=== PATIENT | male | born 1965 | race Caucasian/White ===

== ENCOUNTER 2017-04-11 01:18 | Inpatient (IN) | payer MEDICARE, OTHER ==
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
--- NOTE | ~2017-04-11 | DS ---
Discharge Summary [facility] [address] [place]. [address] NAME: IRVIN BAZZI JR : 61 STATUS : DIS IN PAT#: [id number] AGE: 51 ADM/REG DATE : 04/12/17 MR#: [id number] REPORT SERV DATE: 04/17/17 DICTATED BY: DATE: REPORT STATUS : Draft TRANSCRIBED BY: MODL DATE: 04/16/17 ADMISSION DATE: 04/12/2017 DISCHARGE DATE: 04/16/2017 [facility] ATTENDING PHYSICIAN: Dr. Tejas Hatch. CONSULTANTS: Included Tevin Anderson of Urology, Dr. Lopez Kinney of Infectious Disease, and Maximo Maldonado of Interventional Radiology. DISCHARGE DIAGNOSES: 1. Catheter associated urinary tract infection, catheter associated epididymitis. 2. Chronic indwelling Gill catheter due to history of spinal cord injury. 3. Fluoroquinolone resistant E. coli and Pseudomonas catheter associated urinary tract infection - to complete an additional two weeks of IV cefepime. 4. Status post suprapubic catheter placement in Interventional Radiology on 04/15/2017. 5. Spastic quadriplegia due to history of spinal cord injury. 6. Chronic pain syndrome and chronic spasticity. 7. Acute kidney injury present at admission - resolved. 8. Insulin-dependent diabetes mellitus type 2 - controlled with hemoglobin A1c of 6.4. 9. History of anemia of chronic disease. Normal iron studies this admission, normal B12. 10.History of paroxysmal atrial fibrillation. 11.Anxiety and depression. 12.History of DVT - not requiring chronic anticoagulation. 13.History of gout. 14.History of neuropathy. 15.History of decubitus ulcers - none presently. For air mattress at discharge as a preventative measure. 16.Chronic bilateral lower extremity lymphedema. 17.Hypomagnesemia. IMAGIN. Testicular ultrasound on 04/11/2017 for left scrotal pain shows left epididymitis with septated hydrocele or pyocele. 2. CT abdomen and pelvis 04/13/2017 for urinary tract infection and neurogenic bladder shows no acute abnormality. Moderate amount of fecal material retained throughout the colon. Small right effusion with minimal atelectasis at the right lung base. Cholelithiasis. PERTINENT LABS: White blood cell count at admission was 10.7, 4.7 at discharge. Hemoglobin values ranging from 11.7 to 13.2, platelet counts ranging from 110-131. Sedimentation rate 53. Sodium values normal. Potassium normal. Creatinine initially 1.85, 1.26 at discharge. Liver enzymes normal. Iron 66. Iron binding capacity 200%. Iron saturation 33, ferritin 492. B12 445. TSH 0.446. Free T4 of 1.18. Hemoglobin A1c 6.4. Lactate 1.9. Urinalysis cloudy with glucose, large leukocyte esterase, nitrite positive, greater than 182 white Discharge Summary [address] [place]. [address] NAME: IRVIN BAZZI JR : 61 STATUS : DIS IN PAT#: [id number] AGE: 51 ADM/REG DATE : 04/12/17 MR#: [id number] REPORT SERV DATE: 04/17/17 DICTATED BY: DATE: REPORT STATUS : Draft TRANSCRIBED BY: MODL DATE: 04/16/17 blood cells with few clumps, few bacteria. No blood cultures were obtained. Urine cultures demonstrating E. coli and Pseudomonas, both with fluoroquinolone resistance. BRIEF HISTORY: For full details, please see the previously dictated history of present illness by Dr. Magen Paz. This is a 51-year-old white male with longstanding quadriplegia from a cervical spine injury in the with a chronic indwelling Gill catheter. He presented to the emergency department on the with 24 hours of significant swelling, redness, tenderness of the left testicle, nausea, abdominal discomfort, and was found to have an abnormal urinalysis. Imaging in the emergency department also revealed left epididymitis and labs revealed acute kidney injury. The patient was admitted to the Hospitalist Service for management of the above. HOSPITAL COURSE: The patient was initially cared for by Dr. Hatch from admission through 04/14/2017. Consultations were obtained from Urology and Infectious Disease. The patient was initially managed with cefepime and vancomycin given prior culture data of MRSA and Pseudomonas. He improved with this and recommendation was to continue cefepime for an additional two weeks post discharge. PICC line was placed on 04/14/2017 to facilitate home IV antibiotics. Urology also recommended suprapubic tube placement prior to discharge, and this was performed in Interventional Radiology by Dr. Maximo Maldonado on 04/15/2017 without complication. The patient's chronic medical conditions were managed with the use of home medications this admission, and patient did not require the addition of any medications to his regimen with the exception of magnesium and aspirin for stroke prophylaxis with history of paroxysmal atrial fibrillation. DISCHARGE DISPOSITION: The patient is being discharged to home in the care of his supportive who is a nurse, with a PICC line and a suprapubic tube. He will complete an additional two weeks of IV cefepime, and his PICC line will be discontinued on 05/01/2017. The patient will need to follow up with interventional radiologist, Dr. Maximo Maldonado in one month for the first suprapubic tube exchange and thereafter with his urologist, Dr. Tevin Anderson. Home health is being arranged for PICC care, suprapubic tube care, and IV antibiotic teaching. Air mattress was also ordered for home use for the patient given history of decubitus ulcers and quadriplegia. DISCHARGE MEDICATIONS: Include: 1. Aspirin 81 mg p.o. daily. 2. Baclofen 10 mg p.o. four times a day. 3. Wellbutrin 150 mg p.o. twice a day. 4. Zantac 150 mg p.o. twice a day. 5. Neurontin 600 mg p.o. twice a day. 6. Lantus 35 units subcu twice a day. 7. NovoLog sliding scale subcu q.a.c. and at bedtime. 8. MS Contin 60 mg p.o. twice a day. Discharge Summary [address] [address] NAME: ROSE MARYIRVIN TYLER WARNER : 61 STATUS : DIS IN PAT#: [id number] AGE: 51 ADM/REG DATE : 04/12/17 MR#: [id number] REPORT SERV DATE: 04/17/17 DICTATED BY: DATE: REPORT STATUS : Draft TRANSCRIBED BY: MODL DATE: 04/16/17 9. Multivitamin one tablet p.o. daily. 10.Zocor 20 mg p.o. daily. 11.Zanaflex 4 mg p.o. three times a day. 12.Trazodone 100 mg p.o. at bedtime. 13.Magnesium oxide 800 mg p.o. twice a day. 14.Xanax 1 mg p.o. every 8 hours as needed for anxiety. 15.Roxicodone 20 mg p.o. every six hours as needed for pain. 16.Glucotrol 10 mg p.o. twice a day. 17.Iron sulfate 325 mg p.o. twice a day. 18.Lasix 20 mg p.o. twice a day. 19.Colcrys 0.6 mg p.o. twice a day as needed for gout flare ups. 20.Allopurinol 300 mg p.o. daily p.r.n. gout flare up. 21.Lactulose 15-30 mL p.o. daily as needed for constipation. 22.Afrin 2-3 sprays per nostril every 12 hours as needed for congestion. 23.Cefepime 1 g IV q.8 hours administered via a portable pump -through 04/20/2017. 40 minutes was spent in completion of the discharge. DICTATED BY: Suhas Bower/TETE Pedro Mehta M.D. / [id number] CC: Suhas Bowre M.D. Donald Zeigler, M.D.
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
[~2017-04-11 01:18] MED LIST: ABILIFY15 PO; ALIGN4 MG PO; AMB5 PO; B COMPLEX-C PO; BACDS PO; CEFT5 PO; COLCRYS0.6 MG PO; CONSTULOSE PO; DSS PO; DURA75 TOP; GLUCOTRO10 PO; L20 PO; LEVEMIR SC; MAGOX4 PO; MAX2 IM; MSIMMREL PO; NEUR600 PO; OXYCOD PO; PRIN10 PO; TRAZ100 PO; WELLXL300 PO; X5 PO; XARELTO15 MG PO; XARELTO20 MG PO; Z300 PO; ZANAFLEX 4 MG TA4 MG PO; ZANTAC150 MG PO; ZOCOR20 PO
[2017-04-11 01:48] LABS: ASCORBIC ACID (UR NOT ORDER) NEG (NEG); BILIRUBIN, URINE NEGATIVE (NEG); ER URINALYSIS TAT 0 Hrs 00 Mins; KETONE, URINE NEGATIVE (NEG); LEUKOCYTE ESTERASE(NOT OR LARGE (NEG); NITRITE (URINE) POS (NEG)
[2017-04-11 01:49] LABS: WBC (NOT ORDERED) (RFLEX) > 182 (0-5)
[2017-04-11 02:04] LABS: BASOPHILS 0.2 %; BASOPHILS ABSOLUTE 0.02 10/3/uL (0.0-0.16); EOSINOPHILS 1.3 %; EOSINOPHILS ABSOLUTE 0.14 10/3/uL (0.0-0.53); HEMATOCRIT 38.9 % (40.0-51.0); HEMOGLOBIN 13.2 g/dL (13.6-17.8); IMMATURE GRANULOCYTES 0.2 %; IMMATURE GRANULOCYTES ABSOLUTE 0.02 10/3/uL (0.0-0.11); LYMPHOCYTES 12.2 %; LYMPHOCYTES ABSOLUTE 1.31 10/3/uL (0.67-4.30); MEAN CORPUS HGB CONC 33.9 g/dL (32.0-36.0); MEAN CORPUSCULAR HEMOGLOB 28.8 pg (26.0-34.0); MEAN CORPUSCULAR VOLUME 84.7 fL (80-100); MEAN PLATELET VOLUME 10.6 fL (9.2-13.0); MONOCYTES 8.7 %; MONOCYTES ABSOLUTE 0.93 10/3/uL (0.21-1.20); NEUTROPHILS 77.4 %; NEUTROPHILS ABSOLUTE 8.32 10/3/uL (2.02-8.40); PLATELET COUNT 131 10/3/uL (150-400); RBC DISTRIBUTION WIDTH 15.5 % (12.0-16.0); RED CELL COUNT 4.59 10/6/uL (4.7-6.1); WHITE BLOOD CELLS 10.7 10/3/uL (4.5-10.5)
[2017-04-11 02:05] LABS: MANUAL DIFF NO %
[2017-04-11 02:23] LABS: A/G RATIO 0.7 (0.7-1.9); ALKALINE PHOSPHATASE 95 U/L (45-117); BUN (BLOOD UREA NITROGEN) 20 MG/DL (6-23); CALCIUM, SERUM 8.4 MG/DL (8.5-10.4); CHLORIDE, SERUM 103 MMOL/L (96-112); CO2 (CARBON DIOXIDE) 25 MMOL/L (24-34); CREATININE 1.85 MG/DL (0.70-1.30); GFR AFRICAN AMERICAN 47 ML/MIN (>=60); GFR NON AFRICAN AMERICAN 41 ML/MIN (>=60); GLOBULIN 4.3 G/DL (2.5-4.1); POTASSIUM, SERUM 4.4 MMOL/L (3.5-5.3); SGOT(AST) 9 U/L (5-40); SGPT(ALT) 17 U/L (5-65); SODIUM, SERUM 137 MMOL/L (135-148); TOTAL BILIRUBIN 0.5 MG/DL (0-1.2); TOTAL PROTEIN 7.3 G/DL (6.0-8.5)
[2017-04-11 02:24] LABS: GLUCOSE, SERUM 272 MG/DL (60-99); LACTATE 1.9 MMOL/L (0.3-2.4)
[2017-04-11 02:43] LABS: PROCALCITONIN 0.26 ng/mL (<0.5)
[2017-04-11] MEDS ORDERED: ZANAFLEX 4 MG TA4 MG PO (03:13)
[2017-04-11] MEDS ORDERED: XANAX1 MG PO (03:14)
[2017-04-11] MEDS ORDERED: OXYCOD PO (03:15)
[2017-04-11] MEDS ORDERED: NEUR600 PO (03:16)
[2017-04-11] MEDS ORDERED: MSCONT60 PO (03:16)
[2017-04-11] MEDS ORDERED: WELLXL150 PO (03:17)
[2017-04-11] MEDS ORDERED: GLUCOTRO10 PO (03:18)
[2017-04-11] MEDS ORDERED: TRAZ100 PO (03:18)
[2017-04-11] MEDS ORDERED: ZOCOR20 PO (03:18)
[2017-04-11] MEDS ORDERED: ZANTAC 150 PO (03:19)
[2017-04-11] MEDS ORDERED: LIOR10 PO (03:21)
[2017-04-11] MEDS ORDERED: FERROUS SULF325 M1 PO (03:21)
[2017-04-11] MEDS ORDERED: COLCRYS0.6 MG PO (03:22)
[2017-04-11] MEDS ORDERED: L20 PO (03:22)
[2017-04-11] MEDS ORDERED: Z300 PO (03:23)
[2017-04-11] MEDS ORDERED: NOVOPEN SC (03:24)
[2017-04-11] MEDS ORDERED: LANTUSCART SC (03:24)
[2017-04-11] MEDS ORDERED: CONSTULOSE PO (03:25)
[2017-04-11] MEDS ORDERED: AFRIN15 NAS (03:27)
[2017-04-11] MEDS ORDERED: MULTIVIT/MIN PO (03:27)
[2017-04-11 12:53] LABS: ASCORBIC ACID (UR NOT ORDER) NEG (NEG); BILIRUBIN, URINE NEGATIVE (NEG); KETONE, URINE NEGATIVE (NEG); LEUKOCYTE ESTERASE(NOT OR LARGE (NEG); WBC (NOT ORDERED) (RFLEX) 108 (0-5)
[2017-04-12 06:46] LABS: BASOPHILS 0.4 %; BASOPHILS ABSOLUTE 0.03 10/3/uL (0.0-0.16); EOSINOPHILS ABSOLUTE 0.21 10/3/uL (0.0-0.53); HEMATOCRIT 36.9 % (40.0-51.0); HEMOGLOBIN 12.3 g/dL (13.6-17.8); IMMATURE GRANULOCYTES 0.1 %; IMMATURE GRANULOCYTES ABSOLUTE 0.01 10/3/uL (0.0-0.11); LYMPHOCYTES 17.6 %; LYMPHOCYTES ABSOLUTE 1.21 10/3/uL (0.67-4.30); MEAN CORPUS HGB CONC 33.3 g/dL (32.0-36.0); MEAN CORPUSCULAR HEMOGLOB 28.4 pg (26.0-34.0); MEAN CORPUSCULAR VOLUME 85.2 fL (80-100); MONOCYTES 12.3 %; MONOCYTES ABSOLUTE 0.85 10/3/uL (0.21-1.20); NEUTROPHILS 66.6 %; NEUTROPHILS ABSOLUTE 4.58 10/3/uL (2.02-8.40); PLATELET COUNT 110 10/3/uL (150-400); RBC DISTRIBUTION WIDTH 15.7 % (12.0-16.0); RED CELL COUNT 4.33 10/6/uL (4.7-6.1); WHITE BLOOD CELLS 6.9 10/3/uL (4.5-10.5)
[2017-04-12 06:52] LABS: BUN (BLOOD UREA NITROGEN) 21 MG/DL (6-23); CALCIUM, SERUM 8.7 MG/DL (8.5-10.4); CHLORIDE, SERUM 107 MMOL/L (96-112); CO2 (CARBON DIOXIDE) 28 MMOL/L (24-34); CREATININE 1.66 MG/DL (0.70-1.30); GFR AFRICAN AMERICAN 54 ML/MIN (>=60); GFR NON AFRICAN AMERICAN 46 ML/MIN (>=60); GLUCOSE, SERUM 108 MG/DL (60-99); POTASSIUM, SERUM 4.2 MMOL/L (3.5-5.3); SODIUM, SERUM 138 MMOL/L (135-148)
[2017-04-12 06:53] LABS: MANUAL DIFF NO %
[2017-04-13 05:38] LABS: BASOPHILS 0.4 %; BASOPHILS ABSOLUTE 0.02 10/3/uL (0.0-0.16); EOSINOPHILS 3.5 %; EOSINOPHILS ABSOLUTE 0.19 10/3/uL (0.0-0.53); HEMATOCRIT 35.4 % (40.0-51.0); HEMOGLOBIN 11.8 g/dL (13.6-17.8); IMMATURE GRANULOCYTES 0.2 %; IMMATURE GRANULOCYTES ABSOLUTE 0.01 10/3/uL (0.0-0.11); LYMPHOCYTES 22.1 %; LYMPHOCYTES ABSOLUTE 1.19 10/3/uL (0.67-4.30); MEAN CORPUS HGB CONC 33.3 g/dL (32.0-36.0); MEAN CORPUSCULAR HEMOGLOB 28.2 pg (26.0-34.0); MEAN CORPUSCULAR VOLUME 84.5 fL (80-100); MEAN PLATELET VOLUME 10.9 fL (9.2-13.0); MONOCYTES 9.6 %; MONOCYTES ABSOLUTE 0.52 10/3/uL (0.21-1.20); NEUTROPHILS 64.2 %; NEUTROPHILS ABSOLUTE 3.46 10/3/uL (2.02-8.40); PLATELET COUNT 117 10/3/uL (150-400); RBC DISTRIBUTION WIDTH 15.3 % (12.0-16.0); RED CELL COUNT 4.19 10/6/uL (4.7-6.1); WHITE BLOOD CELLS 5.4 10/3/uL (4.5-10.5)
[2017-04-13 05:41] LABS: MANUAL DIFF NO %
[2017-04-13 05:49] LABS: BUN (BLOOD UREA NITROGEN) 21 MG/DL (6-23); CALCIUM, SERUM 8.6 MG/DL (8.5-10.4); CHLORIDE, SERUM 106 MMOL/L (96-112); CO2 (CARBON DIOXIDE) 25 MMOL/L (24-34); CREATININE 1.43 MG/DL (0.70-1.30); GFR AFRICAN AMERICAN 64 ML/MIN (>=60); GFR NON AFRICAN AMERICAN 56 ML/MIN (>=60); POTASSIUM, SERUM 4.1 MMOL/L (3.5-5.3); SODIUM, SERUM 138 MMOL/L (135-148)
[2017-04-13 05:51] LABS: GLUCOSE, SERUM 153 MG/DL (60-99)
[2017-04-14 08:26] LABS: BASOPHILS 0.8 %; BASOPHILS ABSOLUTE 0.03 10/3/uL (0.0-0.16); EOSINOPHILS 4.7 %; EOSINOPHILS ABSOLUTE 0.18 10/3/uL (0.0-0.53); HEMOGLOBIN 11.9 g/dL (13.6-17.8); IMMATURE GRANULOCYTES 0.3 %; IMMATURE GRANULOCYTES ABSOLUTE 0.01 10/3/uL (0.0-0.11); LYMPHOCYTES 27.5 %; LYMPHOCYTES ABSOLUTE 1.06 10/3/uL (0.67-4.30); MEAN CORPUSCULAR HEMOGLOB 28.3 pg (26.0-34.0); MEAN CORPUSCULAR VOLUME 83.1 fL (80-100); MEAN PLATELET VOLUME 10.8 fL (9.2-13.0); MONOCYTES 14.5 %; MONOCYTES ABSOLUTE 0.56 10/3/uL (0.21-1.20); NEUTROPHILS 52.2 %; NEUTROPHILS ABSOLUTE 2.01 10/3/uL (2.02-8.40); PLATELET COUNT 118 10/3/uL (150-400); RBC DISTRIBUTION WIDTH 15.5 % (12.0-16.0); RED CELL COUNT 4.21 10/6/uL (4.7-6.1); WHITE BLOOD CELLS 3.9 10/3/uL (4.5-10.5)
[2017-04-14 08:27] LABS: MANUAL DIFF NO %
[2017-04-14 08:40] LABS: BUN (BLOOD UREA NITROGEN) 20 MG/DL (6-23); CALCIUM, SERUM 8.4 MG/DL (8.5-10.4); CHLORIDE, SERUM 109 MMOL/L (96-112); CO2 (CARBON DIOXIDE) 23 MMOL/L (24-34); CREATININE 1.43 MG/DL (0.70-1.30); GFR AFRICAN AMERICAN 64 ML/MIN (>=60); GFR NON AFRICAN AMERICAN 56 ML/MIN (>=60); POTASSIUM, SERUM 4.2 MMOL/L (3.5-5.3); SODIUM, SERUM 137 MMOL/L (135-148)
[2017-04-14 08:44] LABS: GLUCOSE, SERUM 233 MG/DL (60-99)
[2017-04-15 05:11] LABS: BASOPHILS 0.6 %; BASOPHILS ABSOLUTE 0.03 10/3/uL (0.0-0.16); EOSINOPHILS 4.2 %; HEMOGLOBIN 11.7 g/dL (13.6-17.8); IMMATURE GRANULOCYTES 0.2 %; IMMATURE GRANULOCYTES ABSOLUTE 0.01 10/3/uL (0.0-0.11); LYMPHOCYTES ABSOLUTE 1.32 10/3/uL (0.67-4.30); MEAN CORPUS HGB CONC 34.4 g/dL (32.0-36.0); MEAN CORPUSCULAR HEMOGLOB 28.8 pg (26.0-34.0); MEAN CORPUSCULAR VOLUME 83.7 fL (80-100); MEAN PLATELET VOLUME 10.1 fL (9.2-13.0); MONOCYTES 18.6 %; MONOCYTES ABSOLUTE 0.88 10/3/uL (0.21-1.20); NEUTROPHILS 48.4 %; NEUTROPHILS ABSOLUTE 2.28 10/3/uL (2.02-8.40); PLATELET COUNT 123 10/3/uL (150-400); RBC DISTRIBUTION WIDTH 14.9 % (12.0-16.0); RED CELL COUNT 4.06 10/6/uL (4.7-6.1); RETICULOCYTE COUNT 2.2 % (0.5-2.5); RETICULOCYTE COUNT ABSOLUTE 88.9 10/3/uL (20.2-119.8); WHITE BLOOD CELLS 4.7 10/3/uL (4.5-10.5)
[2017-04-15 05:13] LABS: MANUAL DIFF NO %
[2017-04-15 05:49] LABS: % IRON SAT 33 % (20-50); BUN (BLOOD UREA NITROGEN) 19 MG/DL (6-23); CALCIUM, SERUM 8.4 MG/DL (8.5-10.4); CHLORIDE, SERUM 108 MMOL/L (96-112); CO2 (CARBON DIOXIDE) 26 MMOL/L (24-34); CREATININE 1.26 MG/DL (0.70-1.30); FERRITIN 492 NG/ML (26-388); FREE T4 1.18 NG/DL (0.76-1.46); GFR AFRICAN AMERICAN 75 ML/MIN (>=60); GFR NON AFRICAN AMERICAN 65 ML/MIN (>=60); IRON BINDING CAPACITY 200 MCG/DL (250-450); IRON, SERUM 66 MCG/DL (35-150); POTASSIUM, SERUM 4.1 MMOL/L (3.5-5.3); SODIUM, SERUM 138 MMOL/L (135-148)
[2017-04-15 05:52] LABS: GLUCOSE, SERUM 156 MG/DL (60-99); ULTRASENSITIVE TSH 0.446 MCIU/ML (0.358-3.740)
[2017-04-15 06:08] LABS: SED RATE 53 MM/HR (0-15)
[2017-04-16] MEDS ORDERED: ASAB PO (11:18)
[2017-04-16] MEDS ORDERED: MAGOX4 PO (11:19)
[2017-07-05] MEDS ORDERED: GENERLAC PO (10:01)
[2017-07-05] MEDS ORDERED: LANTUSCART SC (10:01)
[2017-07-05] MEDS ORDERED: XANAX1 MG PO (10:01)
[2017-07-05] MEDS ORDERED: MSCONT60 PO (10:02)
[2017-07-05] MEDS ORDERED: LIOR10 PO (10:02)
[2017-07-05] MEDS ORDERED: OXYCOD PO (10:02)
[2017-07-05] MEDS ORDERED: L20 PO (10:02)
[2017-07-05] MEDS ORDERED: ZANTAC 150 PO (10:03)
[2017-07-05] MEDS ORDERED: GLUCOTRO10 PO (10:03)
[2017-07-05] MEDS ORDERED: NEUR600 PO (10:03)
[2017-07-05] MEDS ORDERED: ZANAFLEX 4 MG TA4 MG PO (10:03)
[2017-07-05] MEDS ORDERED: MAGOX4 PO (10:03)
[2017-07-05] MEDS ORDERED: WELLXL150 PO (10:04)
[2017-07-05] MEDS ORDERED: FERROUS SULF325 M1 PO (10:04)
[2017-07-05] MEDS ORDERED: ZOCOR20 PO (10:04)
[2017-07-05] MEDS ORDERED: DITROPAN XL10 MG PO (10:04)
[2017-07-05] MEDS ORDERED: TRAZ100 PO (10:04)
[2017-07-05] MEDS ORDERED: COLCH6 PO (10:05)
[2017-07-05] MEDS ORDERED: NOVOLOG SC (10:05)
[2017-07-05] MEDS ORDERED: Z300 PO (10:05)
[2017-07-07] MEDS ORDERED: REG5 PO (11:36)
== END 2017-04-16 18:33 | disposition home health service (06) | DRG 698 ==
LOC: ER 01:18 → 4SO 03:43
PROVIDERS: Internal Medicine; Nurse Practitioner
DX: T83.511A Infection and inflammatory reaction due to indwelling urethral catheter, initial encounter (principal); G82.50 Quadriplegia, unspecified; E11.21 Type 2 diabetes mellitus with diabetic nephropathy; E11.40 Type 2 diabetes mellitus with diabetic neuropathy, unspecified; N17.9 Acute kidney failure, unspecified; S14.104S Unspecified injury at C4 level of cervical spinal cord, sequela; N18.3 Chronic kidney disease, stage 3 (moderate); Z68.41 Body mass index [BMI] 40.0-44.9, adult; E83.42 Hypomagnesemia; E11.65 Type 2 diabetes mellitus with hyperglycemia; I48.0 Paroxysmal atrial fibrillation; F32.9 Major depressive disorder, single episode, unspecified; B96.20 Unspecified Escherichia coli [E. coli] as the cause of diseases classified elsewhere; B96.5 Pseudomonas (aeruginosa) (mallei) (pseudomallei) as the cause of diseases classified elsewhere; Y84.6 Urinary catheterization as the cause of abnormal reaction of the patient, or of later complication, without mention of misadventure at the time of the procedure; N39.0 Urinary tract infection, site not specified; N45.3 Epididymo-orchitis; S14.105S Unspecified injury at C5 level of cervical spinal cord, sequela; V89.2XXS Person injured in unspecified motor-vehicle accident, traffic, sequela; Y92.009 Unspecified place in unspecified non-institutional (private) residence as the place of occurrence of the external cause; F41.9 Anxiety disorder, unspecified; Z93.3 Colostomy status; Z79.4 Long term (current) use of insulin; Z79.84 Long term (current) use of oral hypoglycemic drugs; Z79.891 Long term (current) use of opiate analgesic; Z16.23 Resistance to quinolones and fluoroquinolones; D63.8 Anemia in other chronic diseases classified elsewhere; M10.9 Gout, unspecified; I89.0 Lymphedema, not elsewhere classified; K59.03 Drug induced constipation; T40.2X5A Adverse effect of other opioids, initial encounter; E66.01 Morbid (severe) obesity due to excess calories; R33.9 Retention of urine, unspecified
CPT/HCPCS: 36569; 51102; 51705; 74176; 76870; 76942; 77002; 80048; 80053; 81001; 82607; 82728; 82962; 83036; 83540; 83550; 83605; 83735; 84145; 84439; 84443; 85025; 85045; 85652; 87077; 87086; 87186; 96374; 96375; 99285; A9270-GY; C1725; C1751; C1769; J0692; J1170; J1956; J2250; J2405; J3010; J3370; J3475; Q9967